=== PATIENT | female | born 1990 | race Caucasian/White ===

== ENCOUNTER 2018-01-16 15:07 | Emergency (ER) | payer OTHER, BC ==
[~2018-01-16] VITALS: Ht 162.6 cm; Wt 66.7 kg
[2018-01-16] MEDS ORDERED: MOTRIN200 MG PO (15:50)
== END 2018-01-16 16:15 | disposition home or self-care (01) ==
LOC: FSED 15:07
DX: S00.83XA Contusion of other part of head, initial encounter (principal); M54.2 Cervicalgia; S13.4XXA Sprain of ligaments of cervical spine, initial encounter
CPT/HCPCS: 99282

== ENCOUNTER 2018-04-02 18:23 | Emergency (ER) | payer SELFPAY ==
[~2018-04-02] VITALS: Ht 162.6 cm; Wt 66.7 kg
[~2018-04-02 18:23] MED LIST: MOTRIN200 MG PO
[2018-04-02] MEDS ORDERED: IBUPROFEN 600 MG TAB PO STA (18:24)
[2018-04-02] MEDS ORDERED: KETOROLAC TROMETHAMINE 60 MG/2 ML VIAL IM STA (20:38)
[2018-04-02] MEDS ORDERED: HYDROCODONE/APAP 7.5MG-325MG 1 EA TAB PO PRN (20:45)
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
[2018-04-02] MEDS ORDERED: ULTRAM 50MG50 MG PO (21:22)
[2018-04-02] MEDS ORDERED: CYCLOBENZAPRINE5 MG PO (21:22)
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
[2018-04-03] MEDS ORDERED: DEXAMETHASONE SOD PHOS 10 MG/1 ML VIAL IV ONE (00:30)
[2018-04-03 00:59] VITALS: BP 111/72
[2018-04-03 00:59] LABS: BASOPHILS # (AUTO) 0.1 (0.0-0.1); BASOPHILS % 0.7 % (0.0-1.0); EOSINOPHILS # (AUTO) 0.1 (0.0-0.4); EOSINOPHILS % 0.9 % (0.0-6.0); HEMATOCRIT 35.3 % (34.2-44.1); HEMOGLOBIN 10.7 g/dL (12.0-16.0); LYMPHOCYTES # (AUTO) 2.7 (1.0-3.2); LYMPHOCYTES % 25.9 % (18.0-39.1); MEAN CORPUSCULAR HEMOGLOBIN 22.8 pg (28-32); MEAN CORPUSCULAR HGB CONC 30.3 g/dL (31-35); MEAN CORPUSCULAR VOLUME 75.3 fL (81-99); MONOCYTES # (AUTO) 0.6 (0.2-0.8); MONOCYTES % 5.8 % (4.4-11.3); NEUTROPHILS # (AUTO) 6.9 (2.1-6.9); NEUTROPHILS % 66.5 % (38.7-80.0); PLATELET COUNT 348 x10e3/uL (140-360); RED BLOOD COUNT 4.69 x10e6/uL (3.6-5.1); RED CELL DISTRIBUTION WIDTH 18.5 % (11.7-14.4)
[2018-04-03 01:16] LABS: INR 1.11; PROTHROMBIN TIME 13.5 seconds (11.9-14.5)
[2018-04-03 01:17] LABS: PARTIAL THROMBOPLASTIN TIME 26.4 seconds (23.8-35.5)
[2018-04-03 01:26] LABS: ANION GAP 14.6 mmol/L (8-16); BLOOD UREA NITROGEN 11 mg/dL (7-26); BUN/CREATININE RATIO 13 (6-25); CALCIUM 9.8 mg/dL (8.4-10.2); CARBON DIOXIDE 23 mmol/L (22-29); CHLORIDE 105 mmol/L (98-107); CREATINE KINASE 83 IU/L (29-168); CREATININE, SERUM 0.87 mg/dL (0.57-1.11); EST GLOMERULAR FILTRATION RATE > 60 ML/MIN (60-); GLUCOSE 136 mg/dL (74-118); POTASSIUM 4.6 mmol/L (3.5-5.1); SODIUM 138 mmol/L (136-145)
== END 2018-04-03 01:57 | disposition short-term general hospital (02) ==
LOC: ER 18:24
DX: M54.2 Cervicalgia (principal); G95.29 Other cord compression; M50.20 Other cervical disc displacement, unspecified cervical region; M79.644 Pain in right finger(s); S60.222A Contusion of left hand, initial encounter; S60.221A Contusion of right hand, initial encounter; S80.02XA Contusion of left knee, initial encounter; S80.01XA Contusion of right knee, initial encounter; V43.51XA Car driver injured in collision with sport utility vehicle in traffic accident, initial encounter; Y92.488 Other paved roadways as the place of occurrence of the external cause
CPT/HCPCS: 29130; 36415; 70450; 71046; 72125; 72141; 73110; 73130; 73562; 80048; 82550; 82553; 84484; 85025; 85610; 85730; 99284; J1100; J1885